=== PATIENT | male | born 1955 | race Caucasian/White ===

== ENCOUNTER 2024-05-15 03:38 | Emergency (ER) | payer OTHER ==
[~2024-05-15] VITALS: Ht 182.9 cm; Wt 95.2 kg
[2024-05-15] MEDS ORDERED: Ondansetron HCl 2 MG / ML 2ML Vial ONE (04:04)
[2024-05-15 04:08] LABS: BASOPHILS ABSOLUTE AUTO 0.04 K/mm3 (0.00-0.23); BASOPHILS PERCENT AUTO 0 % (0-2); EOSINOPHILS ABSOLUTE AUTO 0.08 K/mm3 (0.00-0.68); EOSINOPHILS PERCENT AUTO 1 % (0-6); Hematocrit 43.1 % (37.0-53.0); Hemoglobin 15.4 g/dL (13.5-17.5); IMMATURE GRAN ABSOLUTE AUTO 0.04 K/mm3 (0.00-0.10); IMMATURE GRAN PERCENT AUTO 0 % (0-1); LYMPHOCYTES ABSOLUTE AUTO 1.45 K/mm3 (0.84-5.20); LYMPHOCYTES PERCENT AUTO 14 % (21-46); MONOCYTES ABSOLUTE AUTO 0.68 K/mm3 (0.16-1.47); MONOCYTES PERCENT AUTO 7 % (4-13); Mean Corpuscular HGB 29.8 pg (26.0-34.0); Mean Corpuscular HGB Conc 35.7 g/dL (31.5-36.5); Mean Corpuscular Volume 83 fL (80-100); Mean Platelet Volume 10.4 fL (9.1-12.4); NEUTROPHILS ABSOLUTE AUTO 7.88 K/mm3 (1.96-9.15); NEUTROPHILS PERCENT AUTO 77 % (41-73); Platelet Count 254 K/mm3 (150-400); RDW Coefficient Variation 11.9 % (11.7-14.2); RDW Standard Deviation 35.8 fL (35.1-46.3); Red Blood Cell Count 5.17 M/mm3 (4.30-5.90); White Blood Cell Count 10.17 K/mm3 (4.00-11.30)
[2024-05-15] MEDS ORDERED: Ondansetron HCl 2 MG / ML 2ML Vial IV ONE (04:15)
[2024-05-15] MEDS ORDERED: AMLO10 PO (04:16)
[2024-05-15] MEDS ORDERED: ATOR10 PO (04:16)
[2024-05-15] MEDS ORDERED: MELA3 PO (04:18)
[2024-05-15] MEDS ORDERED: TAMS.4ER PO (04:19)
[2024-05-15] MEDS ORDERED: IMITREX25 MG (04:20)
[2024-05-15] MEDS ORDERED: HydrALAZINE HCl 20 MG / ML 1ML Vial IV ONE (04:20)
[2024-05-15] MEDS ORDERED: VENL75ER PO (04:20)
[2024-05-15] MEDS ORDERED: OZEMPIC2 MG/0.75 SC (04:23)
[2024-05-15] MEDS ORDERED: MULTI-VITAMIN1 EAC2 PO (04:23)
[2024-05-15] MEDS ORDERED: METO50 PO (04:24)
[2024-05-15] MEDS ORDERED: METF500 PO (04:25)
[2024-05-15] MEDS ORDERED: MELO7.5 PO (04:25)
[2024-05-15] MEDS ORDERED: LORA10ER PO (04:26)
[2024-05-15] MEDS ORDERED: LOSA50 PO (04:26)
[2024-05-15 04:27] LABS: Alanine Aminotransfer (ALT/SGP 24 U/L (12-78); Albumin, Blood 3.9 g/dL (3.4-5.0); Albumin/Globulin Ratio 1.1 (0.8-1.8); Alk Phos 203 U/L (50-136); Anion Gap 12 mmol/L (3-11); Aspartate Aminotrans (AST/SGOT 14 U/L (12-37); Bilirubin, Total 0.4 mg/dL (0.1-1.0); Blood Urea Nitrogen 17 mg/dL (8-24); CO2, Blood 25 mmol/L (21-32); Calcium, Blood 9.7 mg/dL (8.5-10.1); Chloride, Blood 103 mmol/L (98-108); Creatinine, Blood 1.06 mg/dL (0.60-1.20); Ethanol (Alcohol), Blood, Med <3 mg/dL; Globulin, Blood 3.6 g/dL (2.2-4.0); Glomerular Filtration Rate 77 (60-); Glucose, Blood 410 mg/dL (70-99); Potassium, Blood 3.9 mmol/L (3.5-5.5); Sodium, Blood 136 mmol/L (136-145); Total Protein, Blood 7.5 g/dL (6.4-8.2)
[2024-05-15] MEDS ORDERED: Voltaren100 GM TOP (04:27)
[2024-05-15] MEDS ORDERED: EPIPEN0.3 MG/0.3 IM (04:27)
[2024-05-15] MEDS ORDERED: FAMO20 PO (04:27)
[2024-05-15] MEDS ORDERED: Midazolam HCl 1MG / ML 2ML Vial IV SCH (04:30)
[2024-05-15] MEDS ORDERED: THERA-D2000 UNIT PO (04:32)
[2024-05-15] MEDS ORDERED: Cyclobenzaprine5 MG PO (04:32)
[2024-05-15 05:02] LABS: U Amphetamine Screen Not Detected; U Barbituate Screen Not Detected; U Benzodiazapine Screen Not Detected; U Buprenorphine Screen Not Detected; U Cannabinoids Screen Not Detected; U Cocaine Screen Not Detected; U Methadone Screen Not Detected; U Methamphetamine Screen Not Detected; U Opiates Screen Not Detected; U Oxycodone Screen Not Detected; U Phencyclidine Screen Not Detected
== END 2024-05-15 08:06 | disposition home or self-care (01) ==
LOC: ER 03:38 → EDBD 03:38 → ER 08:06
PROVIDERS: Emergency Medicine
DX: R40.4 Transient alteration of awareness (principal); I16.0 Hypertensive urgency; I10 Essential (primary) hypertension; E11.9 Type 2 diabetes mellitus without complications; E78.5 Hyperlipidemia, unspecified; K21.9 Gastro-esophageal reflux disease without esophagitis; G47.00 Insomnia, unspecified; G43.909 Migraine, unspecified, not intractable, without status migrainosus; Z79.84 Long term (current) use of oral hypoglycemic drugs; Z79.899 Other long term (current) drug therapy; Z88.6 Allergy status to analgesic agent
CPT/HCPCS: 70450; 80053; 80320; 85025; 93005; 93010; 99285-25; J0360; J2250; J2405

== ENCOUNTER 2024-05-20 10:24 | Emergency (ER) | payer OTHER ==
[~2024-05-20] VITALS: Ht 170.2 cm; Wt 72.6 kg
[~2024-05-20 10:24] MED LIST: AMLO10 PO; ATOR10 PO; Cyclobenzaprine5 MG PO; EPIPEN0.3 MG/0.3 IM; FAMO20 PO; IMITREX25 MG; LORA10ER PO; LOSA50 PO; MELA3 PO; MELO7.5 PO; METF500 PO; METO50 PO; MULTI-VITAMIN1 EAC2 PO; OZEMPIC2 MG/0.75 SC; TAMS.4ER PO; THERA-D2000 UNIT PO; VENL75ER PO; Voltaren100 GM TOP
[2024-05-20 11:38] LABS: BASOPHILS ABSOLUTE AUTO 0.03 K/mm3 (0.00-0.23); BASOPHILS PERCENT AUTO 1 % (0-2); EOSINOPHILS ABSOLUTE AUTO 0.06 K/mm3 (0.00-0.68); EOSINOPHILS PERCENT AUTO 1 % (0-6); Hematocrit 42.7 % (37.0-53.0); Hemoglobin 15.1 g/dL (13.5-17.5); IMMATURE GRAN ABSOLUTE AUTO 0.01 K/mm3 (0.00-0.10); IMMATURE GRAN PERCENT AUTO 0 % (0-1); LYMPHOCYTES ABSOLUTE AUTO 0.97 K/mm3 (0.84-5.20); LYMPHOCYTES PERCENT AUTO 20 % (21-46); MONOCYTES ABSOLUTE AUTO 0.52 K/mm3 (0.16-1.47); MONOCYTES PERCENT AUTO 11 % (4-13); Mean Corpuscular HGB 29.5 pg (26.0-34.0); Mean Corpuscular HGB Conc 35.4 g/dL (31.5-36.5); Mean Corpuscular Volume 84 fL (80-100); Mean Platelet Volume 10.5 fL (9.1-12.4); NEUTROPHILS ABSOLUTE AUTO 3.25 K/mm3 (1.96-9.15); NEUTROPHILS PERCENT AUTO 67 % (41-73); Platelet Count 249 K/mm3 (150-400); RDW Coefficient Variation 11.9 % (11.7-14.2); RDW Standard Deviation 35.8 fL (35.1-46.3); Red Blood Cell Count 5.11 M/mm3 (4.30-5.90); White Blood Cell Count 4.84 K/mm3 (4.00-11.30)
[2024-05-20 12:02] LABS: Albumin, Blood 3.6 g/dL (3.4-5.0); Albumin/Globulin Ratio 1.1 (0.8-1.8); Bilirubin, Total 0.5 mg/dL (0.1-1.0); Bun/Creatinine Ratio 13.8 (12.0-20.0); Calcium, Blood 9.1 mg/dL (8.5-10.1); Creatinine, Blood 1.16 mg/dL (0.60-1.20); Globulin, Blood 3.3 g/dL (2.2-4.0); Potassium, Blood 3.5 mmol/L (3.5-5.5); Total Protein, Blood 6.9 g/dL (6.4-8.2)
[2024-05-20] MEDS ORDERED: Lactated Ringer's 1,000 ML IV ONE (16:20)
[2024-05-20 16:55] LABS: Source, Urine Clean Catch
[2024-05-20 16:59] LABS: Appearance, Urine Clear (Clear); Bilirubin, Urine Neg (Neg); Blood, Urine Neg (Neg); Glucose Qualitative, Urine 4+ (Neg); Ketones, Urine Neg (Neg); Leukocyte Esterase, Urine Neg (Neg); Nitrite, Urine Neg (Neg); Protein, Urine 3+ (Neg); Urobilinogen, Urine NORM (Normal)
[2024-05-20 17:01] LABS: Base Excess Venous 4.7 mmol/L; Bicarbonate Venous 26.8 mmol/L (24.0-30.0); PCO2 Venous 51.4 mmHg (38-42); pH Blood Venous 7.37 (7.34-7.37)
[2024-05-20 17:07] LABS: Color, Urine Pale Yellow (P-Yellow)
[2024-05-20] MEDS ORDERED: Metoclopramide HCl 5MG / ML 2ML Vial IV ONE (17:10)
[2024-05-20] MEDS ORDERED: Acetaminophen 500 MG Tab PO ONE (17:10)
[2024-05-20] MEDS ORDERED: DiphenhydrAMINE HCl 50 MG/ML 1ML Vial IV ONE (17:10)
[2024-05-20] MEDS ORDERED: Labetalol HCL 5 MG/ML 4ML Injection (Single Dose) IV ONE (17:10)
[2024-05-20 17:18] LABS: Bacteria Rare /hpf; Squamous Epithelial Cells Rare /hpf (Few); White Blood Cells, Urine 0-2 /hpf (0-5)
[2024-05-20] MEDS ORDERED: Insulin Regular 100 Unit/ML 1ML Dose IV ONE (18:55)
== END 2024-05-20 20:41 | disposition home or self-care (01) ==
LOC: ER 10:24
PROVIDERS: Physician Assistant; Student in an Organized Health Care Education/Training Program
DX: R51.9 Headache, unspecified (principal); I10 Essential (primary) hypertension; E11.65 Type 2 diabetes mellitus with hyperglycemia; Z79.899 Other long term (current) drug therapy; Z79.84 Long term (current) use of oral hypoglycemic drugs; Z88.8 Allergy status to other drugs, medicaments and biological substances
CPT/HCPCS: 70450; 70496; 80053; 81001; 82010; 82803; 82947; 85025; 93005; 93010; 96361; 96374-59; 96375-59; 99284-25; A9270; J1200; J1815; J2765; J7120; Q9967

== ENCOUNTER 2024-09-06 15:22 | Inpatient (IN) | payer OTHER ==
[~2024-09-06] VITALS: Ht 182.9 cm; Wt 70.6 kg
[2024-09-06] MEDS ORDERED: LORazepam 2 MG/ML 1ML Injection ONE (15:26)
[2024-09-06] MEDS ORDERED: LORazepam 2 MG/ML 1ML Injection IV ONE ×2 (15:35→16:10)
[2024-09-06] MEDS ORDERED: DiphenhydrAMINE HCl 50 MG/ML 1ML Vial IV ONE (15:40)
[2024-09-06] MEDS ORDERED: Haloperidol Lactate Inj. 5 MG/ML Injection IV ONE ×2 (15:40→21:35)
[2024-09-06 16:03] LABS: BASOPHILS ABSOLUTE AUTO 0.03 K/mm3 (0.00-0.23); BASOPHILS PERCENT AUTO 0 % (0-2); EOSINOPHILS ABSOLUTE AUTO 0.07 K/mm3 (0.00-0.68); EOSINOPHILS PERCENT AUTO 1 % (0-6); Hemoglobin 14.7 g/dL (13.5-17.5); IMMATURE GRAN ABSOLUTE AUTO 0.02 K/mm3 (0.00-0.10); IMMATURE GRAN PERCENT AUTO 0 % (0-1); LYMPHOCYTES ABSOLUTE AUTO 2.22 K/mm3 (0.84-5.20); LYMPHOCYTES PERCENT AUTO 31 % (21-46); MONOCYTES ABSOLUTE AUTO 0.44 K/mm3 (0.16-1.47); MONOCYTES PERCENT AUTO 6 % (4-13); Mean Corpuscular HGB 29.6 pg (26.0-34.0); Mean Corpuscular Volume 85 fL (80-100); Mean Platelet Volume 10.7 fL (9.1-12.4); NEUTROPHILS PERCENT AUTO 61 % (41-73); Platelet Count 269 K/mm3 (150-400); RDW Standard Deviation 36.4 fL (35.1-46.3); Red Blood Cell Count 4.96 M/mm3 (4.30-5.90); White Blood Cell Count 7.18 K/mm3 (4.00-11.30)
[2024-09-06 16:38] LABS: Alanine Aminotransfer (ALT/SGP 15 U/L (12-78); Albumin, Blood 3.4 g/dL (3.4-5.0); Alk Phos 153 U/L (50-136); Anion Gap 13 mmol/L (3-11); Aspartate Aminotrans (AST/SGOT 9 U/L (12-37); Bilirubin, Total 0.3 mg/dL (0.1-1.0); Blood Urea Nitrogen 26 mg/dL (8-24); Bun/Creatinine Ratio 17.4 (12.0-20.0); CO2, Blood 24 mmol/L (21-32); Chloride, Blood 100 mmol/L (98-108); Creatinine, Blood 1.49 mg/dL (0.60-1.20); Globulin, Blood 3.3 g/dL (2.2-4.0); Glomerular Filtration Rate 51 (60-); Glucose, Blood 347 mg/dL (70-99); Potassium, Blood 3.9 mmol/L (3.5-5.5); Sodium, Blood 133 mmol/L (136-145); Total Protein, Blood 6.7 g/dL (6.4-8.2)
[2024-09-06 16:39] LABS: Ethanol (Alcohol), Blood, Med <3 mg/dL
[2024-09-06 17:19] LABS: Source, Urine Clean Catch
[2024-09-06 17:22] LABS: Appearance, Urine Clear (Clear); Bilirubin, Urine Neg (Neg); Blood, Urine 2+ (Neg); Glucose Qualitative, Urine 4+ (Neg); Ketones, Urine 1+ (Neg); Leukocyte Esterase, Urine 1+ (Neg); Nitrite, Urine Neg (Neg); Protein, Urine 3+ (Neg); Urobilinogen, Urine NORM (Normal)
[2024-09-06 17:39] LABS: Color, Urine Pale Yellow (P-Yellow)
[2024-09-06 17:44] LABS: Calcium Oxalate Crystals Rare /hpf
[2024-09-06 17:46] LABS: Squamous Epithelial Cells Few /hpf (Few)
[2024-09-06 17:47] LABS: Bacteria Few /hpf
[2024-09-06 17:53] LABS: U Amphetamine Screen Not Detected; U Barbituate Screen Not Detected; U Benzodiazapine Screen Not Detected; U Buprenorphine Screen Not Detected; U Cannabinoids Screen Not Detected; U Cocaine Screen Not Detected; U Methadone Screen Not Detected; U Methamphetamine Screen Not Detected; U Opiates Screen Not Detected; U Oxycodone Screen Not Detected; U Phencyclidine Screen Not Detected
[2024-09-06] MEDS ORDERED: CefTRIAXone Sodium 1,000 MG in NS 100 ML IV ONE (19:45)
[2024-09-06] MEDS ORDERED: Ondansetron HCl 2 MG / ML 2ML Vial IV PRN (21:15)
[2024-09-06] MEDS ORDERED: Lactated Ringer's 1,000 ML IV SCH (21:20)
[2024-09-06] MEDS ORDERED: LORazepam 2 MG/ML 1ML Injection IV PRN (21:20)
[2024-09-06 21:39] LABS: Magnesium, Blood 1.9 mg/dL (1.6-2.4)
[2024-09-06] MEDS ORDERED: Lactated Ringer's 1,000 ML IV ONE (22:00)
[2024-09-06 23:05] VITALS: BP 156/79
[2024-09-07] MEDS ORDERED: Insulin Human Lispro 100 Units/ML 3ML Syringe SC SCH
[2024-09-07 03:27] VITALS: BP 140/77
--- NOTE | 2024-09-07 05:27 | NUR ---
PT RECIEVED VIA ER PT AWAKENS TO VERBAL STIMULI AND IS SEDATED AT THE BEGINNING OF THE SHIFT. WAS NOTIFIED BY ER THAT PTS TRUCK IS STILL PARKED AT [facility] HE WILL ANSWER SOME YES OR NO QUESTIONS AT TIMES. HE PULLS BLANKETS OVER HIS HEAD. SHAKING NOTED WHEN MOVING, PT TACHYCARDIA T/O SHIFT DISCUSSED WITH HOSPITALIST. WHEN PT WAS ASKED IF HE DRINKS ALCOHOL HE SAID NO. CALL LIGHT WITHIN REACH. PT RESTLESS PULLING AT LINES WAS GIVEN ATIVAN. PT AWAKENS TO VERBAL STIMULI AND HAD STOPPED PULLING AT TELE AND LINES. PT IS BECOMING MORE ALERAT AND A&O TO SELF. PT DOES NOT ANSWER ANY OTHER QUESTIONS.
--- NOTE | 2024-09-07 06:01 | NUR ---
INSULIN HELD THIS AM DUE TO PT NOT EATING OR DRINKING. LAST INSULIN DECREASE BLOOD SUGAR SIGNIFICANTLY. WAS CONCERNED DUE TO THIS AND THAT THE PATIENT WAS STILL NOT WAKING UP ENOUGH TO EAT OR DRINK AT THIS TIME. WILL CONTINUE TO MONITOR.
[2024-09-07 06:21] LABS: BASOPHILS ABSOLUTE AUTO 0.04 K/mm3 (0.00-0.23); BASOPHILS PERCENT AUTO 1 % (0-2); EOSINOPHILS ABSOLUTE AUTO 0.06 K/mm3 (0.00-0.68); EOSINOPHILS PERCENT AUTO 1 % (0-6); Hematocrit 39.4 % (37.0-53.0); Hemoglobin 13.2 g/dL (13.5-17.5); IMMATURE GRAN ABSOLUTE AUTO 0.02 K/mm3 (0.00-0.10); IMMATURE GRAN PERCENT AUTO 0 % (0-1); LYMPHOCYTES ABSOLUTE AUTO 1.88 K/mm3 (0.84-5.20); LYMPHOCYTES PERCENT AUTO 23 % (21-46); MONOCYTES ABSOLUTE AUTO 0.75 K/mm3 (0.16-1.47); MONOCYTES PERCENT AUTO 9 % (4-13); Mean Corpuscular HGB 28.6 pg (26.0-34.0); Mean Corpuscular HGB Conc 33.5 g/dL (31.5-36.5); Mean Corpuscular Volume 86 fL (80-100); Mean Platelet Volume 10.5 fL (9.1-12.4); NEUTROPHILS ABSOLUTE AUTO 5.44 K/mm3 (1.96-9.15); NEUTROPHILS PERCENT AUTO 66 % (41-73); Platelet Count 216 K/mm3 (150-400); RDW Coefficient Variation 12.1 % (11.7-14.2); RDW Standard Deviation 37.5 fL (35.1-46.3); Red Blood Cell Count 4.61 M/mm3 (4.30-5.90); White Blood Cell Count 8.19 K/mm3 (4.00-11.30)
[2024-09-07 06:42] LABS: Albumin, Blood 3.1 g/dL (3.4-5.0); Bilirubin, Total 0.4 mg/dL (0.1-1.0); Bun/Creatinine Ratio 14.3 (12.0-20.0); Calcium, Blood 8.7 mg/dL (8.5-10.1); Creatinine, Blood 1.47 mg/dL (0.60-1.20); Globulin, Blood 3.1 g/dL (2.2-4.0); Magnesium, Blood 1.9 mg/dL (1.6-2.4); Potassium, Blood 3.6 mmol/L (3.5-5.5); Total Protein, Blood 6.2 g/dL (6.4-8.2)
[2024-09-07 07:31] VITALS: BP 152/75
[2024-09-07] MEDS ORDERED: Enoxaparin 40 MG/0.4 ML SYR SC SCH (09:00)
[2024-09-07] MEDS ORDERED: Thiamine HCl 100 MG in NS 50 ML IV SCH (09:00)
--- NOTE | 2024-09-07 12:00 | NUR ---
PT MORE AWAKE AND ALERT. ANSWERING QUESTIONS HOWEVER WITH LIMITED RESPONSES. PT REPORTS HE REMEMBERS FEELING DIZZY, HOWVER DOES NOT REMEMBER ANYTHING ELSE. PT REPORTS NOTHING LIKE THIS HAS EVER HAPPENED BEFORE.
[2024-09-07 12:37] LABS: Base Excess Venous 2.1 mmol/L; Bicarbonate Venous 26.4 mmol/L (24.0-30.0); pH Blood Venous 7.47 (7.34-7.37)
[2024-09-07 12:45] LABS: Thyroid Stimulating Hormone 1.38 uIU/mL (0.360-4.800)
[2024-09-07 12:49] VITALS: BP 152/92
[2024-09-07 16:05] VITALS: BP 164/93
--- NOTE | 2024-09-07 16:56 | NUR ---
SHIFT SUMMARY PT IS A/OX2-3. AT THE START OF THIS SHIFT PT OPENING EYES TO SOUNDS/NAME, HOWEVER NOT ANSWERING QUESTIONS. THIS AFTERNOON PT MORE ALERT AND INTERACTIVE. PT AWAKE AND ANSWERING QUESTIONS, HOWEVER LIMITED TO QUESTIONS THAT HE WILL ANSWER. PT STATING HE HAS A BROTHER, DANIEL MONROE, AND THAT HE LIVES IN [place]. SALMON IN PLACE DRAIING YELLOW URINE TO GRAVITY FOR ACUTE RETENTION. ON TELE RUNNING SINUS RYTHYM/SINUS TACH IN THE 90-110'S. CONTINUOUS LR RUNNING @ 150 ML/HR. PT FEBRILE THIS EVENING.
[2024-09-07] MEDS ORDERED: Atorvastatin 10 MG Tab PO SCH (18:00)
[2024-09-07] MEDS ORDERED: Famotidine 20 MG Tab PO SCH (19:00)
[2024-09-07 19:27] VITALS: BP 165/89
[2024-09-07] MEDS ORDERED: CefTRIAXone Sodium 1,000 MG in NS 100 ML IV SCH (21:00)
[2024-09-07] MEDS ORDERED: Metoprolol Tartrate 50 MG Tab PO SCH (21:00)
[2024-09-07] MEDS ORDERED: Lactobacil 2-S.Thermo-Bifido 1 1 Cap PO SCH (21:00)
[2024-09-07] MEDS ORDERED: NS 250 ML IV PRN (21:25)
[2024-09-08] VITALS (7 sets, daily range): BP systolic 143–181; BP diastolic 75–101
--- NOTE | 2024-09-08 05:23 | NUR ---
PT A&O TO SELF AND DATE, CONFUSED ON PLACE, ANSWER SOME QUESTIONS APPROPRIATLY AND HAS CLEAR SPEECH. PT WAKING UP UNCOOPERATIVE. PT HAS BEEN VERY ACTIVE T/O THE SHIFT REMOVING TELE, CLOTHES, PULLING AT LINES AND GETTING OOB TO TAKE A WALK NAKED. PT AGITATED PULLING AT LINES, SNAPPED IV TUBING IN HALF. IV REMOVED WITH TIP INTACT. PT UNAWARE OF CATHETER IN PLACE AND NOT EASILY REDIRECTABLE. PT WALKED TO BATHROOM WITH 2 ASSIST, UNSTEADY ON FEET
[2024-09-08] MEDS ORDERED: Insulin Human Lispro 100 Units/ML 3ML Syringe SC SCH (07:30)
[2024-09-08] MEDS ORDERED: Venlafaxine HCl 75 MG CapCR PO SCH (09:00)
[2024-09-08] MEDS ORDERED: AmLODIPine Besylate 5 MG Tab PO SCH (09:00)
[2024-09-08 10:11] LABS: BASOPHILS ABSOLUTE AUTO 0.03 K/mm3 (0.00-0.23); BASOPHILS PERCENT AUTO 1 % (0-2); EOSINOPHILS PERCENT AUTO 2 % (0-6); Hemoglobin 13.3 g/dL (13.5-17.5); IMMATURE GRAN ABSOLUTE AUTO 0.01 K/mm3 (0.00-0.10); IMMATURE GRAN PERCENT AUTO 0 % (0-1); LYMPHOCYTES ABSOLUTE AUTO 1.47 K/mm3 (0.84-5.20); LYMPHOCYTES PERCENT AUTO 22 % (21-46); MONOCYTES ABSOLUTE AUTO 0.59 K/mm3 (0.16-1.47); MONOCYTES PERCENT AUTO 9 % (4-13); Mean Corpuscular HGB 29.1 pg (26.0-34.0); Mean Corpuscular HGB Conc 34.1 g/dL (31.5-36.5); Mean Corpuscular Volume 85 fL (80-100); Mean Platelet Volume 10.6 fL (9.1-12.4); NEUTROPHILS ABSOLUTE AUTO 4.38 K/mm3 (1.96-9.15); NEUTROPHILS PERCENT AUTO 67 % (41-73); Platelet Count 229 K/mm3 (150-400); RDW Coefficient Variation 11.9 % (11.7-14.2); RDW Standard Deviation 37.1 fL (35.1-46.3); Red Blood Cell Count 4.57 M/mm3 (4.30-5.90); White Blood Cell Count 6.58 K/mm3 (4.00-11.30)
[2024-09-08 10:25] LABS: Albumin, Blood 2.9 g/dL (3.4-5.0); Albumin/Globulin Ratio 0.9 (0.8-1.8); Bilirubin, Total 0.5 mg/dL (0.1-1.0); Bun/Creatinine Ratio 13.3 (12.0-20.0); Calcium, Blood 8.6 mg/dL (8.5-10.1); Creatinine, Blood 1.28 mg/dL (0.60-1.20); Globulin, Blood 3.1 g/dL (2.2-4.0); Magnesium, Blood 1.7 mg/dL (1.6-2.4); Phosphorus, Blood 2.6 mg/dL (2.5-4.9); Potassium, Blood 4.1 mmol/L (3.5-5.5)
[2024-09-08] MEDS ORDERED: Losartan Potassium 50 MG Tab PO SCH (17:00)
--- NOTE | 2024-09-08 18:47 | NUR ---
SHIFT SUMMARY PT IS A/OX3, CONFUSION TO DATE/TIME AND CURRENT SITUATION AT TIME. PT IS ALSO IMPULSIVE BUT EASILY REDIRECTABLE, BED/CHAIR ALARM ON. THE PT PULLED OUT HIS IV THIS AFTERNOON. PT INCREASINGLY MORE ALERT THIS EVENING. PT REPORTED THAT HE LIVES IN [place] BUT C[facility] [place] [facility]. THE PT SHARED THAT HE RECIEVED CARE REGARDING HIS HIGH BLOOD PRESSURE AND HIGH BLOOD SUGARS, HOWEVER NEVER RECIEVED ANTIBIOTICS FOR THE UTI. THE LAST THING THE PT REMEMBERS BEFORE COMING TO THE HOSPITAL IS BEING AT [facility] AND FEELING DIZZY AND OFF BALANCE. ON TELE RUNNING NORMAL SINUS RYTHYM/SINUS TACH IN THE 80-110'S. SALMON IN PLACE FOR ACUTE RETENTION AND DRAINING YELLOW URINE.
[2024-09-09 03:15] VITALS: BP 174/95
[2024-09-09 05:30] LABS: Hematocrit 41.3 % (37.0-53.0); Hemoglobin 14.2 g/dL (13.5-17.5); Mean Corpuscular HGB 28.7 pg (26.0-34.0); Mean Corpuscular HGB Conc 34.4 g/dL (31.5-36.5); Mean Corpuscular Volume 83 fL (80-100); Mean Platelet Volume 10.3 fL (9.1-12.4); Platelet Count 241 K/mm3 (150-400); RDW Coefficient Variation 11.6 % (11.7-14.2); Red Blood Cell Count 4.95 M/mm3 (4.30-5.90); White Blood Cell Count 5.88 K/mm3 (4.00-11.30)
[2024-09-09 05:57] LABS: Bun/Creatinine Ratio 14.5 (12.0-20.0); Creatinine, Blood 1.17 mg/dL (0.60-1.20); Magnesium, Blood 1.6 mg/dL (1.6-2.4); Phosphorus, Blood 2.7 mg/dL (2.5-4.9); Potassium, Blood 3.7 mmol/L (3.5-5.5)
[2024-09-09 07:52] VITALS: BP 180/92
[2024-09-09] MEDS ORDERED: Losartan Potassium 50 MG Tab PO SCH ×2 (09:00)
[2024-09-09 16:08] VITALS: BP 155/94
--- NOTE | 2024-09-09 16:50 | NUR ---
SHIFT SUMMARY PT IS A/OX2-3, CONFUSION TO CURRENT SITUATION AT TIMES AND LOCATION. PT REMAINS IMPULSIVE, BED/CHAIR ALARM ON. EASILY REDIRECTABLE. NO ACUTE CHANGES THROUGHOUT THIS SHIFT. UP WITH 1 PERSON ASSIST D/T UNSTEADY GAIT AND ASSISTANCE WITH SALMON. SALMON IN PLACE PATENT AND DRAINING CLEAR, YELLOW URINE.
[2024-09-09 19:21] VITALS: BP 165/80
[2024-09-10 03:52] VITALS: BP 160/79
[2024-09-10 05:28] LABS: Bun/Creatinine Ratio 17.5 (12.0-20.0); Calcium, Blood 8.9 mg/dL (8.5-10.1); Creatinine, Blood 1.2 mg/dL (0.60-1.20); Potassium, Blood 4.1 mmol/L (3.5-5.5)
[2024-09-10 07:22] VITALS: BP 171/86
[2024-09-10] MEDS ORDERED: HydroCHLOROthiazide 25 mg Tab PO SCH (09:00)
[2024-09-10] MEDS ORDERED: Insulin Human Lispro 100 Units/ML 3ML Syringe SC SCH (16:30)
--- NOTE | 2024-09-10 17:46 | NUR ---
PT HAS BEEN DOING WELL PT AOX2-3 WTIH CONFUSION. PT APPEARS MORE CONFUSED LATER IN THE DAY. SALMON REMOVED AND PT VOIDED POST BLADDER SCAN OF 52. PT IS IMPULSIVE AND NEEDS REDIRECTED PERIODICALLY BY SITTER. NO DISTRESS CURRENTLY WILL CONTINUE TO MONITOR.
[2024-09-10 19:15] VITALS: BP 150/81
--- NOTE | 2024-09-11 03:41 | NUR ---
SHIFT SUMMARY PATIENT IS ALERT AND ORIENTED 2X. PATIENT HAS HAD NO ACUTE EVENTS THIS SHIFT VITAL SIGNS REVIEWED. PATIENT HAS HAD NO COMPLAINTS OF PAIN, NAUSEA SOB OR VOMITTING. SITTER HAS BEEN IN PLACE ALL SHIFT. PATIENT HAS BEEN IMPULSIVE AT TIMES. PATIENT HAS BEEN SLEEPING OFF AND ON MOST OF SHIFT. BED IN LOCKED AND LOWEST POSITION. CALL LIGHT IN PLACE.
[2024-09-11 07:11] VITALS: BP 144/79
[2024-09-11] MEDS ORDERED: Insulin Human Lispro 100 Units/ML 3ML Syringe SC SCH ×2 (07:30→18:00)
[2024-09-11 08:13] LABS: BASOPHILS ABSOLUTE AUTO 0.04 K/mm3 (0.00-0.23); BASOPHILS PERCENT AUTO 1 % (0-2); EOSINOPHILS PERCENT AUTO 2 % (0-6); Hematocrit 40.9 % (37.0-53.0); Hemoglobin 14.2 g/dL (13.5-17.5); IMMATURE GRAN ABSOLUTE AUTO 0.02 K/mm3 (0.00-0.10); IMMATURE GRAN PERCENT AUTO 0 % (0-1); LYMPHOCYTES ABSOLUTE AUTO 1.88 K/mm3 (0.84-5.20); LYMPHOCYTES PERCENT AUTO 34 % (21-46); MONOCYTES PERCENT AUTO 11 % (4-13); Mean Corpuscular HGB 28.9 pg (26.0-34.0); Mean Corpuscular HGB Conc 34.7 g/dL (31.5-36.5); Mean Corpuscular Volume 83 fL (80-100); Mean Platelet Volume 10.2 fL (9.1-12.4); NEUTROPHILS ABSOLUTE AUTO 2.87 K/mm3 (1.96-9.15); NEUTROPHILS PERCENT AUTO 52 % (41-73); Platelet Count 261 K/mm3 (150-400); RDW Coefficient Variation 11.9 % (11.7-14.2); RDW Standard Deviation 36.1 fL (35.1-46.3); Red Blood Cell Count 4.92 M/mm3 (4.30-5.90); White Blood Cell Count 5.51 K/mm3 (4.00-11.30)
[2024-09-11 08:33] LABS: Albumin/Globulin Ratio 0.9 (0.8-1.8); Bilirubin, Total 0.5 mg/dL (0.1-1.0); Bun/Creatinine Ratio 19.7 (12.0-20.0); Calcium, Blood 8.8 mg/dL (8.5-10.1); Creatinine, Blood 1.27 mg/dL (0.60-1.20); Globulin, Blood 3.2 g/dL (2.2-4.0); Total Protein, Blood 6.2 g/dL (6.4-8.2)
[2024-09-11] MEDS ORDERED: Tamsulosin HCl 0.4 MG Cap PO SCH (09:00)
--- NOTE | 2024-09-11 11:17 | NUR ---
MD CALL CALLED DR MAZA AND OBTAIN ORDER FOR ANTONIETTA YOUNG FOR VTE PROPHYLAXIS
[2024-09-11 15:46] VITALS: BP 126/70
--- NOTE | 2024-09-11 17:00 | NUR ---
SHIFT SUMMARY CLIENT HAS BEEN CALM AND COOPERATIVE THROUGHOUT SHIFT. HAS HAD EPISODES OF CONFUSION AND SHORT TERM FORGETFULNESS. NEW HUMALOG SLIDING SCALE ORDERED, WELL GLARGINE HS. EFFEXOR DC'D AND REPLACED BY PROZAC. GAIT REAMINS UNSTEADY WHEN TRANSITIONING TO RESTROOM. INDEPENDENT WITH ADL'S BEDRAILS UP X 2. BED ALARM ON
--- NOTE | 2024-09-11 18:31 | NUR ---
THIS RN HAS REVIEWED ALL ASSESSMENTS AND NOTES BY LISA BURKETT AND AGREES WITH THEM.
[2024-09-11 20:57] VITALS: BP 140/73
[2024-09-11] MEDS ORDERED: Insulin Glargine-Yfgn 100 Unit/mL 3 ML SYR SC SCH (21:00)
[2024-09-12 04:44] VITALS: BP 122/74
--- NOTE | 2024-09-12 05:36 | NUR ---
SHIFT SUMMARY PT IS ALERT AND ORIENTED TIMES 3. PT ADMITTED FOR TOXIC METABOLIC ENCEPHALOPATHY. PT IS ON ROOM AIR. PT HAS NO IV ORDER. PT HAS EPISODES OF FORGETFULNESS. PT IS COOPERATIVE WITH CARE, CARB CONSTANT DIET, WEARING TET HOSE PT IS AC/HS. BED IN LOW POSITION, CALL LIGHT WITHIN REACH, RAILS TIMES 2.
[2024-09-12 06:38] LABS: BASOPHILS ABSOLUTE AUTO 0.04 K/mm3 (0.00-0.23); BASOPHILS PERCENT AUTO 1 % (0-2); EOSINOPHILS ABSOLUTE AUTO 0.11 K/mm3 (0.00-0.68); EOSINOPHILS PERCENT AUTO 2 % (0-6); Hematocrit 41.9 % (37.0-53.0); Hemoglobin 14.6 g/dL (13.5-17.5); IMMATURE GRAN ABSOLUTE AUTO 0.01 K/mm3 (0.00-0.10); IMMATURE GRAN PERCENT AUTO 0 % (0-1); LYMPHOCYTES ABSOLUTE AUTO 2.08 K/mm3 (0.84-5.20); LYMPHOCYTES PERCENT AUTO 40 % (21-46); MONOCYTES ABSOLUTE AUTO 0.53 K/mm3 (0.16-1.47); MONOCYTES PERCENT AUTO 10 % (4-13); Mean Corpuscular HGB 29.5 pg (26.0-34.0); Mean Corpuscular HGB Conc 34.8 g/dL (31.5-36.5); Mean Corpuscular Volume 85 fL (80-100); Mean Platelet Volume 10.2 fL (9.1-12.4); NEUTROPHILS ABSOLUTE AUTO 2.43 K/mm3 (1.96-9.15); NEUTROPHILS PERCENT AUTO 47 % (41-73); Platelet Count 261 K/mm3 (150-400); RDW Coefficient Variation 11.9 % (11.7-14.2); RDW Standard Deviation 36.1 fL (35.1-46.3); Red Blood Cell Count 4.95 M/mm3 (4.30-5.90)
[2024-09-12 07:05] VITALS: BP 135/82
[2024-09-12 07:06] LABS: Albumin, Blood 2.9 g/dL (3.4-5.0); Albumin/Globulin Ratio 0.9 (0.8-1.8); Bilirubin, Total 0.4 mg/dL (0.1-1.0); Bun/Creatinine Ratio 19.5 (12.0-20.0); Calcium, Blood 8.9 mg/dL (8.5-10.1); Creatinine, Blood 1.49 mg/dL (0.60-1.20); Globulin, Blood 3.3 g/dL (2.2-4.0); Potassium, Blood 4.2 mmol/L (3.5-5.5); Total Protein, Blood 6.2 g/dL (6.4-8.2)
[2024-09-12] MEDS ORDERED: Insulin Human Lispro 100 Units/ML 3ML Syringe SC SCH (08:40)
[2024-09-12] MEDS ORDERED: FLUoxetine HCL 20 MG CAP PO SCH (09:00)
[2024-09-12] MEDS ORDERED: Prozac20 MG PO (12:08)
[2024-09-12] MEDS ORDERED: HYDCHL25 PO (12:09)
[2024-09-12] MEDS ORDERED: BASAGLAR K100 UNIT/1 SC (12:10)
--- NOTE | 2024-09-12 13:25 | NUR ---
DISCHARGE NOTE PT DISCHARGED TO HOME, [facility]. DISCHARGE EDUCATION AND INFORMATION REVIEWED AND PROVIDED TO THE PT. MEDICATIONS FAXED TO THE PHARMACY OF HIS CHOICE. PERSONAL BELONGINGS REMOVED. [employer] NUMBERS PROVIDED TO THE PT FOR HIS TRUCK.
== END 2024-09-12 13:08 | disposition home or self-care (01) | DRG 689 ==
LOC: ER 15:22 → MEDS 15:23 → ERHOLD 15:23 → MEDS 22:53 → ENPENDDIS 09-12 12:30 → MEDS 09-12 13:08
PROVIDERS: Nurse Practitioner Acute Care; Student in an Organized Health Care Education/Training Program; ADMIT Internal Medicine
PROC: 0T9B70Z Drainage of Bladder with Drainage Device, Via Natural or Artificial Opening (ICD-10-PCS; principal; 2024-09-06)
DX: N39.0 Urinary tract infection, site not specified (principal); G92.8 Other toxic encephalopathy; F03.911 Unspecified dementia, unspecified severity, with agitation; N17.9 Acute kidney failure, unspecified; F05 Delirium due to known physiological condition; E87.1 Hypo-osmolality and hyponatremia; K21.9 Gastro-esophageal reflux disease without esophagitis; I10 Essential (primary) hypertension; N40.1 Benign prostatic hyperplasia with lower urinary tract symptoms; R33.8 Other retention of urine; E78.5 Hyperlipidemia, unspecified; E11.65 Type 2 diabetes mellitus with hyperglycemia; F34.1 Dysthymic disorder; F34.0 Cyclothymic disorder; E86.0 Dehydration; T43.205A Adverse effect of unspecified antidepressants, initial encounter; G43.909 Migraine, unspecified, not intractable, without status migrainosus; G47.00 Insomnia, unspecified; R41.3 Other amnesia; Z59.41 Food insecurity; Z88.8 Allergy status to other drugs, medicaments and biological substances; Z78.1 Physical restraint status; Z79.84 Long term (current) use of oral hypoglycemic drugs; Z79.899 Other long term (current) drug therapy
CPT/HCPCS: 36415; 51701; 51702; 51798; 70450; 70496; 70498; 76770; 80048; 80053; 80320; 81001; 82550; 82607; 82803; 82947; 83036; 83735; 84100; 84443; 85025; 85027; 85730; 87086; 93005; 93010; 96361; 96361-59; 96365-59; 96367; 96372; 96375-59; 96376; 96376-59; 97129; 97165; 99285-25; A6590; A9270; G0378; J0696; J1200; J1630; J1650; J1815; J2060; J3411; J7050; J7120; Q9967